=== PATIENT | female | born 1965 | race Caucasian/White ===

== ENCOUNTER 2022-06-16 16:38 | Emergency (ER) | payer BC, SELFPAY ==
[2022-06-16 16:47] VITALS: BP 138/54; PULSE 86; RESP 18; TEMP 36.6; O2SAT 97; BMI 33.3
--- NOTE | 2022-06-16 17:34 | CRLHL7_ITS ---
For Patients: As a result of the Century Cures Act, medical imaging exams and procedure reports are released immediately into your electronic medical record. You may view this report before your referring provider. If you have questions, please contact your health care provider. INDICATION: Fall TECHNIQUE: CT head without contrast. COMPARISON: None. FINDINGS: Motion predominately in the skullbase degrades evaluation these levels. No intracranial hemorrhage. No discrete mass or mass effect. There is no midline shift. The basilar cisterns are patent. No hydrocephalus. The madrigal-white matter interface is otherwise preserved. No acute osseous abnormality. No extracalvarial soft tissue abnormality. The mastoid air cells are clear. The paranasal sinuses are well-aerated. The visualized portions of the orbits and globes are unremarkable. IMPRESSION: No acute intracranial process per unenhanced head CT given the above constraints. Please note that all CT scans at this facility use dose modulation, iterative reconstruction, and/or weight-based dosing when appropriate to reduce radiation dose to as low as reasonably achievable. Dictated by Darren Rivero MD @ 06/16/2022 7:01:09 PM (Electronically Signed)
--- NOTE | 2022-06-16 17:34 | CRLHL7_ITS ---
For Patients: As a result of the Cures Act, medical imaging exams and procedure reports are released immediately into your electronic medical record. You may view this report before your referring provider. If you have questions, please contact your health care provider. INDICATION: Fall. TECHNIQUE: CT cervical spine without contrast. COMPARISON: None. FINDINGS: No acute fracture. Trace anterolisthesis of C4 on C5. Bony mineralization is age appropriate. No prevertebral soft tissue hematoma or swelling. No soft tissue abnormality is identified. Multilevel cervical spondylosis. No pathologically enlarged lymph nodes. Rim calcified thyroid nodules. Centrilobular emphysema in the lung apices. Calcified granulomas in the lung apices. IMPRESSION: Unremarkable cervical spine CT. Please note that all CT scans at this facility use dose modulation, iterative reconstruction, and/or weight-based dosing when appropriate to reduce radiation dose to as low as reasonably achievable. Dictated by Darren Rivero MD @ 06/16/2022 7:04:12 PM (Electronically Signed)
--- NOTE | 2022-06-16 18:47 | ED_ITS ---
HPI - General Adult General Date Seen: 06/16/22 Chief complaint: Head Injury/Pain Stated complaint: Fell in February, chronic headaches/memory loss Time Seen by Provider: 06/16/22 17:18 Source: patient Mode of arrival: ambulatory Limitations: no limitations History of Present Illness HPI narrative: Patient is a 57-year-old female who comes in with complaints of posterior headache that has been worsening over the past couple of weeks. She relates this all to a fall that occurred in February. She is uncertain if she got knocked out but she did hit the back of her head on a cement step. Unclear why she did not seek medical attention at that time. He denies any neurologic deficits such as slurred speech, blurry vision, clumsiness of an arm or leg. She has chronic lower back pain and goes to a pain clinic. She takes six oxycodone per day. She is concerned that she may be having some short-term memory loss but cannot give me any examples. She is mainly here tonight because she is afraid that her brain is disconnected. Apparently her father had some type of head injury that resulted in a hemorrhage and surgery to relieve the pressure. She is fearful that she has the same thing and we discussed that if that were to happen from her fall in February would have happened a long time ago. She has had no nausea, vomiting, neurologic symptoms. Related Data Home Medications Medication Instructions Recorded Confirmed albuterol 06/16/22 citalopram 20 mg tablet mg PO 06/16/22 ezetimibe 10 mg tablet 10 mg PO DAILY 06/16/22 06/16/22 methocarbamol 750 mg tablet 750 mg PO QID 06/16/22 06/16/22 methylprednisolone 4 mg tablets in mg DIRECTED 06/16/22 a dose pack nabumetone 750 mg tablet 750 mg PO BID 06/16/22 06/16/22 oxycodone-acetaminophen 7.5 mg-325 1 tab PO Q4-6H PRN chronic pain 06/16/22 06/16/22 mg tablet trazodone 50 mg tablet PO 06/16/22 Allergies Allergy/AdvReac Type Severity Reaction Status Date / Time amoxicillin Allergy Severe Verified 06/16/22 16:58 [id number]-[id number] Reductase Allergy Severe Verified 06/16/22 17:04 Inhibitor tramadol Allergy Severe Anaphylaxis Verified 06/16/22 17:04 atorvastatin [From Lipitor] Allergy Intermediate Verified 06/16/22 17:04 hydroxyzine Allergy Unknown Verified 06/16/22 17:04 acetaminophen [From Percocet] AdvReac Unknown Verified 06/16/22 17:04 oxycodone [From Percocet] AdvReac Unknown Verified 06/16/22 17:04 bee sting Allergy Severe Uncoded 06/16/22 17:04 Review of Systems Narrative: Review of systems is as outlined above otherwise noted to be negative. PFSH [facility] Social History Smoking Status: Current every day smoker What tobacco products do you use: cigarettes Exam Narrative: Exam Narrative: Vitals noted. She is intermittently tearful. HEENT: Conjunctiva clear. Tympanic membranes are pearly white bilaterally. Posterior pharynx is clear without erythema or exudate. Neck is supple without adenopathy, thyromegaly, carotid bruit. She has full range of motion of the cervical spine. She has some myofascial tightness and tenderness of the upper back as well as the lower back. She is neurologically intact. Lungs: Clear to auscultation in all mcknight. No wheezes, rales, rhonchi. Heart: Regular rate and rhythm without murmur. Abdomen: Soft and nontender. No guarding, rigidity, rebound. Bowel sounds are normal. No palpable masses. Extremities: No cyanosis or edema. Good distal pulses. Skin: No abnormalities noted of the exposed skin. Neurologic: Awake, alert, fully oriented. Neurologic exam is nonfocal. Const: Vital Signs, click to edit/add: Vital Signs - 24 hr 06/16/22 16:47 Temperature 97.9 F Pulse Rate [Pulse Oximeter] 86 Respiratory Rate 18 Blood Pressure [Ri ght Upper Arm] 138/54 L Pulse Oximetry 97 Oxygen Delivery Me thod Room Air Course Course Hospital Course: Patient was seen and examined. She is basically looking for some reassurance that nothing bad happened when she fell and hit her head three months ago. I did concede and order a CT of her head and cervical spine. Reevaluation(s) Reevaluation #1: CT of the brain and cervical spine is normal. Vital Signs Vital signs: Initial Vital Signs Temperature 97.9 F 06/16/22 16:47 Temperature Source Temporal Artery Scan 06/16/22 16:47 Pulse Rate 86 06/16/22 16:47 Respiratory Rate 18 06/16/22 16:47 Blood Pressure 138/54 L 06/16/22 16:47 Blood Pressure Mean 82 06/16/22 16:47 Blood Pressure Position Supine 06/16/22 16:47 Pulse Oximetry 97 06/16/22 16:47 Oxygen Delivery Method Room Air 06/16/22 16:47 Vital Signs Temperature 97.9 F 06/16/22 16:47 Pulse Rate 86 06/16/22 16:47 Respiratory Rate 18 06/16/22 16:47 Blood Pressure 138/54 L 06/16/22 16:47 Pulse Oximetry 97 06/16/22 16:47 Oxygen Delivery Method Room Air 06/16/22 16:47 Temperature 97.9 F 06/16/22 16:47 Pulse Rate 86 06/16/22 16:47 Respiratory Rate 18 06/16/22 16:47 Blood Pressure 138/54 L 06/16/22 16:47 Pulse Oximetry 97 06/16/22 16:47 Oxygen Delivery Method Room Air 06/16/22 16:47 Medical Decision Making MDM Narrative Medical decision making narrative: Her headaches are chronic in sound like muscle tension. She is reassured by her normal imaging. She already has an anti-inflammatory, muscle relaxer, chronic narcotic that she is using. She can follow-up with her PCP to discuss possibly some physical therapy. Discharge Plan Discharge Clinical Impression: Closed head injury Qualifiers: Encounter type: subsequent encounter Qualified Code(s): S09.90XD - Unspecified injury of head, subsequent encounter Chronic tension headaches Qualifiers: Intractability: not intractable Qualified Code(s): G44.229 - Chronic tension- type headache, not intractable Patient Disposition: Home, Self-Care Condition: Improved Additional Instructions: Use ice, stretching, methocarbamol and Relafen to help with her headaches. Follow-up with your PCP Wednesday as scheduled. Your scans are reassuring. Prescriptions: No Action albuterol citalopram 20 mg tablet PO ezetimibe 10 mg tablet 10 mg PO DAILY methocarbamol 750 mg tablet 750 mg PO QID nabumetone 750 mg tablet 750 mg PO BID trazodone 50 mg tablet PO oxycodone-acetaminophen 7.5-325 mg tablet 1 tab PO Q4-6H PRN (Reason: chronic pain) methylprednisolone 4 mg tablets,dose pack DIRECTED Follow Up/Referrals: Lori Bradley PA-C [Primary Care Provider] - Stand Alone Forms: [employer] Info Instructions
== END 2022-06-16 19:23 | disposition home or self-care (01) ==
PROVIDERS: Emergency Provider Family Medicine; PCP Physician Assistant Medical
DX: G44.229 Chronic tension-type headache, not intractable (principal); W19.XXXD Unspecified fall, subsequent encounter
CPT/HCPCS: 70450; 72125; 99282; 99283

== ENCOUNTER 2022-09-12 12:07 | Emergency (ER) | payer BC, SELFPAY ==
[2022-09-12 12:16] VITALS: BP 179/102; PULSE 82; RESP 20; TEMP 36.6; O2SAT 95; BMI 31.8
[2022-09-12 12:30] VITALS: BP 179/103; O2SAT 94
--- NOTE | 2022-09-12 13:03 | ED.GENADULT ---
HPI - General Adult General Chief complaint: Allergic Reaction Stated complaint: allergic reactions to meds Time Seen by Provider: 09/12/22 12:10 History of Present Illness HPI narrative: This 57-year-old female has chronic pain in her low back and has been taking opiates for many years. She has typically taken Percocet but states that she was prescribed oxycodone 10 mg recently and these tablets did not sit well with her. She states that she feels sharp pains at times in her throat and feels itchy. She does not have any rash or swelling. She arrives with normal vital signs. Her blood pressure is a bit elevated. Related Data Home Medications Medication Instructions Recorded Confirmed albuterol 06/16/22 citalopram 20 mg tablet mg PO 06/16/22 ezetimibe 10 mg tablet 10 mg PO DAILY 06/16/22 06/16/22 methocarbamol 750 mg tablet 750 mg PO QID 06/16/22 06/16/22 methylprednisolone 4 mg tablets in mg DIRECTED 06/16/22 a dose pack nabumetone 750 mg tablet 750 mg PO BID 06/16/22 06/16/22 oxycodone-acetaminophen 7.5 mg-325 1 tab PO Q4-6H PRN chronic pain 06/16/22 06/16/22 mg tablet trazodone 50 mg tablet PO 06/16/22 Previous Rx's Medication Instructions Recorded methylprednisolone 4 mg tablets in See Rx Instructions PO .COMPLEX 09/12/22 a dose pack (Medrol (Valentino)) #21 ea Allergies Allergy/AdvReac Type Severity Reaction Status Date / Time amoxicillin Allergy Severe Verified 06/16/22 16:58 Ftacrin-AYP-[id number] Reductase Allergy Severe Verified 06/16/22 17:04 Inhibitor tramadol Allergy Severe Anaphylaxis Verified 06/16/22 17:04 atorvastatin [From Lipitor] Allergy Intermediate Verified 06/16/22 17:04 hydroxyzine Allergy Unknown Verified 06/16/22 17:04 acetaminophen [From Percocet] AdvReac Unknown Verified 06/16/22 17:04 oxycodone [From Percocet] AdvReac Unknown Verified 06/16/22 17:04 bee sting Allergy Severe Uncoded 06/16/22 17:04 Review of Systems Status of ROS: Reports: 10 or more systems reviewed and unremarkable except as noted in History and below Narrative: Constitutional: No fevers, no weight gain or loss. Eyes: No discharge. No vision changes. HENT: No congestion, no sore throat, no ear pain. Cardiovascular: No chest pain, no palpitations. Respiratory: No shortness of breath, no wheezes, no cough. Gastrointestinal: No abdominal pain, no vomiting, no diarrhea. Genitourinary: No dysuria, no hematuria. Musculoskeletal: Normal range of motion. Chronic low back pain. Skin: No rashes. She has episodes of pruritus. Neurological: No dizziness, weakness, sensory change, speech change. Endo/Heme/Allergies: No bruising or bleeding. No polydipsia. Pysch: no suicidality, no anxiety, no insomnia. All other systems reviewed and are negative. [facility] Social History Smoking Status: Current every day smoker What tobacco products do you use: cigarettes Smoking packs per day: 1 Smoking cigarettes per day: 20.0 Years smoked: 45 Smoking pack-years: 45.00 Do you use any of these nicotine containing products: None Second hand tobacco smoke exposure: No How often do you have a drink containing alcohol: never How often do you have six or more drinks on one occasion: Never AUDIT-C Alcohol total score: 0 Non-prescribed substance use: denies use service: Yes Exam Narrative: Exam Narrative: Constitutional: Well-developed, well-nourished, no acute distress. HEENT: Normocephalic, atraumatic. Neck: Normal range of motion. Nontender. Supple. Heart: Regular. No murmurs. Normal rate. Intact distal pulses. Lungs: Clear to auscultation. No chest discomfort. No wheezes, rhonchi, or rales. Abdomen: Normal bowel sounds. Nontender. No rebound tenderness. Genitalia: Deferred. Back: No midline tenderness. Normal range of motion. Extremities: Normal range of motion. No injury. Skin: Intact. No rash. Warm. No erythema or pallor. Neurologic: No altered sensation. No weakness. Alert and oriented. Psychiatric: No suicidality. Nursing notes and vitals signs are reviewed. Const: Vital Signs, click to edit/add: Vital Signs - 24 hr 09/12/22 12:16 Temperature 97.8 F Pulse Rate [Pulse Oximeter] 82 Respiratory Rate 20 Blood Pressure [Ri ght Upper Arm] 179/102 H Pulse Oximetry 95 Oxygen Delivery Me thod Room Air Course Vital Signs Vital signs: Initial Vital Signs Temperature 97.8 F 09/12/22 12:16 Temperature Source Temporal Artery Scan 09/12/22 12:16 Pulse Rate 82 09/12/22 12:16 Pulse Rhythm Regular 09/12/22 12:16 Respiratory Rate 20 09/12/22 12:16 Blood Pressure 179/102 H 09/12/22 12:16 Blood Pressure Mean 127 H 09/12/22 12:16 Blood Pressure Position Sitting 09/12/22 12:16 Pulse Oximetry 95 09/12/22 12:16 Oxygen Delivery Method Room Air 09/12/22 12:16 Vital Signs Temperature 97.8 F 09/12/22 12:16 Pulse Rate 82 09/12/22 12:16 Respiratory Rate 20 09/12/22 12:16 Blood Pressure 179/102 H 09/12/22 12:16 Pulse Oximetry 95 09/12/22 12:16 Oxygen Delivery Method Room Air 09/12/22 12:16 Temperature 97.8 F 09/12/22 12:16 Pulse Rate 82 09/12/22 12:16 Respiratory Rate 20 09/12/22 12:16 Blood Pressure 179/102 H 09/12/22 12:16 Pulse Oximetry 95 09/12/22 12:16 Oxygen Delivery Method Room Air 09/12/22 12:16 Medical Decision Making MDM Narrative Medical decision making narrative: This patient reports some symptoms of pruritus and episodes of pain in her throat. She is concerned that she is having an allergic reaction to medication. She is not exhibiting any sign of allergy symptoms but may be having some adverse reactions to medicines. Her exam is completely normal and her vital signs are reassuring. The patient stated relief and benefit from having discussion about what allergy is and about adverse reactions that can occur. She states that she did have a steroid a couple months ago and this helped her symptoms. She did take Zyrtec and Benadryl prior to arrival without much relief. I did provide a oral dose of dexamethasone 10 mg. I also prescribed a Medrol Dosepak. She is carefully following the guidelines of medications as prescribed by her pain clinic personnel. I did recommend using and histamine and stated that it seems that Mendy perform is a bit better than the others. Discharge Plan Discharge Clinical Impression: Adverse reaction to drug Patient Disposition: Home w/ Parent or Adult Condition: Stable Additional Instructions: Take medication as prescribed. Use Mendy up to 3 times daily for acute onset of itching or allergy symptoms. Continue current plans as outlined by the pain clinic. Follow up with MD or return if worsening. Prescriptions: New methylprednisolone [Medrol (Valentino)] 4 mg tablets,dose pack See Rx Instructions .ROUTE .COMPLEX Qty: 21 0RF Rx Instructions: orally per package directions No Action albuterol citalopram 20 mg tablet PO ezetimibe 10 mg tablet 10 mg PO DAILY methocarbamol 750 mg tablet 750 mg PO QID nabumetone 750 mg tablet 750 mg PO BID trazodone 50 mg tablet PO oxycodone-acetaminophen 7.5-325 mg tablet 1 tab PO Q4-6H PRN (Reason: chronic pain) methylprednisolone 4 mg tablets,dose pack DIRECTED Follow Up/Referrals: Lori Bradley PAChiquita [Primary Care Provider] - Stand Alone Forms: [employer] Info Instructions
[2022-09-12] MEDS: dexAMETHasone 10 MG/ML inj PO (13:17)
== END 2022-09-12 13:52 | disposition home or self-care (01) ==
LOC: ED 13:25
PROVIDERS: Emergency Provider Emergency Medicine Emergency Medical Services; PCP Physician Assistant Medical
DX: T40.2X5A Adverse effect of other opioids, initial encounter (principal); L29.9 Pruritus, unspecified
CPT/HCPCS: 99283; 99284; J1100

== ENCOUNTER 2023-11-18 17:06 | Emergency (ER) | payer BC, SELFPAY ==
[2023-11-18 17:16] VITALS: BP 153/82; PULSE 84; RESP 22; TEMP 36.5; O2SAT 93; BMI 31.5
--- NOTE | 2023-11-18 18:01 | ED_ITS ---
HPI - General Adult General Date Seen: 11/18/23 Chief complaint: Cough Stated complaint: cough Time Seen by Provider: 11/18/23 17:35 History of Present Illness HPI narrative: 58 yo F with a past medical history of presenting to the ER today with concern for nasal congestion, frequent cough. Cough productive of yellow/greenish sputum. No definite fevers but she is having body aches like ?pins and needles? throughout her chset. Symptoms started about 10 days ago on November 07. She has had symptoms of cough, some nasal congestion. She has been producing a lot of yellow/green purulent sputum and also yellow green nasal discharge. She has not had any fevers. Sometimes she gets very short of breath, especially during coughing spells and when that happens she gets a pins and needles feeling in her chest. She has been trying to treat with [id number] medications like DayQuil and NyQuil. She has an inhaler, but has not used it had. She does not have a diagnosis of COPD or asthma does not regularly use inhalers. She has a history of pneumonia (had systems for several months last winter and ultimately was diagnosed with a large left lower lobe infiltrate last April at the [facility]. She had been on a course of penicillins or amoxicillin for possible sinus infection but her pneumonia not get better until her doctor put her on Levaquin. She feels similar with her current illness than when she had previously. She is not having any chest pain. No vomiting or dehydration. No swelling in her legs. Related Data Home Medications ?Medication ?Instructions ?Recorded ?Confirmed albuterol 06/16/22 citalopram 20 mg tablet 30 mg PO QDAY 06/16/22 11/18/23 ezetimibe 10 mg tablet 10 mg PO DAILY 06/16/22 06/16/22 methocarbamol 750 mg tablet 750 mg PO QID 06/16/22 11/18/23 methylprednisolone 4 mg tablets in mg DIRECTED 06/16/22 a dose pack nabumetone 750 mg tablet 750 mg PO BID 06/16/22 11/18/23 oxycodone-acetaminophen 7.5 mg-325 1 tab PO Q4-6H PRN chronic pain 06/16/22 11/18/23 mg tablet trazodone 50 mg tablet PO 06/16/22 Previous Rx's ?Medication ?Instructions ?Recorded methylprednisolone 4 mg tablets in See Rx Instructions PO .COMPLEX 09/12/22 a dose pack (Medrol (Valentino)) #21 ea albuterol sulfate 90 mcg/actuation 2 puff inhalation Q4H PRN 11/18/23 aerosol inhaler shortness of breath or wheezing #8.5 grams doxycycline hyclate 100 mg capsule 100 mg PO BID #14 caps 11/18/23 prednisone 20 mg tablet 40 mg (2 x 20 mg) PO DAILY #10 tabs 11/18/23 Allergies Allergy/AdvReac Type Severity Reaction Status Date / Time amoxicillin Allergy Severe Verified 06/16/22 16:58 Ojvtcqn-RAD-AnC Reductase Allergy Severe Verified 06/16/22 17:04 Inhibitor tramadol Allergy Severe Anaphylaxis Verified 06/16/22 17:04 atorvastatin [From Lipitor] Allergy Intermediate Verified 06/16/22 17:04 hydroxyzine Allergy Unknown Verified 06/16/22 17:04 acetaminophen [From Percocet] AdvReac Unknown Verified 06/16/22 17:04 oxycodone [From Percocet] AdvReac Unknown Verified 06/16/22 17:04 bee sting Allergy Severe Uncoded 06/16/22 17:04 [facility] Social History Smoking Status: Current every day smoker What tobacco products do you use: cigarettes Smoking packs per day: 1 Smoking cigarettes per day: 20.0 Years smoked: 45 Smoking pack-years: 45.00 Do you use any of these nicotine containing products: None Second hand tobacco smoke exposure: No How often do you have a drink containing alcohol: never How often do you have six or more drinks on one occasion: Never AUDIT-C Alcohol total score: 0 Non-prescribed substance use: denies use service: Yes Exam Narrative: Exam Narrative: Constitutional: Appears well-developed and well-nourished. Alert. Conversant. Non toxic. Frequent cough. HENT: Head: Atraumatic. Nose: Nose normal. Mouth/Throat: Oral mucosa is clear and moist. no trismus. Pharynx normal. Tonsils symmetric. No tonsillar enlargement, erythema, or exudate. TMs normal. Eyes: Conjunctivae normal. EOM normal. Pupils equal, round, and reactive to light. No scleral icterus. Neck: Normal range of motion. Neck supple. No tracheal deviation present. Cardiovascular: Normal rate, regular rhythm. No gallop. No friction rub. No murmur heard. Symmetric radial artery pulses Pulmonary/Chest: Effort normal. No stridor. No respiratory distress. Fairly diffuse wheezes. No rales. No rhonchi . No tenderness. Abdominal: Soft. Bowel sounds normal. No distension. No mass. No tenderness. No rebound. No guarding. Musculoskeletal: RUE: Normal range of motion. No tenderness. No deformity LUE: Normal range of motion. No tenderness. No deformity RLE: Normal range of motion. No edema. No tenderness. No deformity LLE: Normal range of motion. No edema. No tenderness. No deformity Neurological: Alert and oriented to person, place, and time. Normal strength. CN II-VII intact. No sensory deficit. GCS eye subscore is 4. GCS verbal subscore is 5. GCS motor subscore is 6. Normal coordination Skin: Skin is warm and dry. No rash noted. No pallor. Normal capillary refill. Psychiatric: Normal mood. Normal affect. Const: Vital Signs, click to edit/add: Vital Signs - 24 hr 11/18/23 17:16 11/18/23 19:10 Temperature 97.7 F Pulse Rate [Right Radial] 84 Respiratory Rate 22 20 Blood Pressure [Ri ght Upper Arm] 153/82 H 140/77 H Pulse Oximetry 93 94 Oxygen Delivery Me thod Room Air Room Air Course Vital Signs Vital signs: Initial Vital Signs Temperature 97.7 F 11/18/23 17:16 Temperature Source Temporal Artery Scan 11/18/23 17:16 Pulse Rate 84 11/18/23 17:16 Pulse Rhythm Regular 11/18/23 17:16 Respiratory Rate 22 11/18/23 17:16 Blood Pressure 153/82 H 11/18/23 17:16 Blood Pressure Mean 105 11/18/23 17:16 Pulse Oximetry 93 11/18/23 17:16 Oxygen Delivery Method Room Air 11/18/23 17:16 Vital Signs Temperature 97.7 F 11/18/23 17:16 Pulse Rate 84 11/18/23 17:16 Respiratory Rate 22 11/18/23 17:16 Blood Pressure 153/82 H 11/18/23 17:16 Pulse Oximetry 93 11/18/23 17:16 Oxygen Delivery Method Room Air 11/18/23 17:16 Temperature 97.7 F 11/18/23 17:16 Pulse Rate 84 11/18/23 17:16 Respiratory Rate 20 11/18/23 19:10 Blood Pressure 140/77 H 11/18/23 19:10 Pulse Oximetry 94 11/18/23 19:10 Oxygen Delivery Method Room Air 11/18/23 19:10 Medications Administered Medications: Discontinued Medications Generic Name Dose Route Start Last Admin Trade Name Lesa PRN Reason Stop Dose Admin Albuterol/Ipratropium 1 neb 11/18/23 18:21 11/18/23 18:44 Iprat-Albut 0.5-2.5 Mg/3 Ml Neb IH 11/18/23 18:22 1 neb ONCE ONE Administration Prednisone 40 mg 11/18/23 18:21 11/18/23 18:44 Prednisone 20 Mg Tablet PO 11/18/23 18:22 40 mg ONCE ONE Administration Medical Decision Making [facility] Narrative Medical decision making narrative: This patient presents for evaluation of a 10 day history of productive cough, nasal congestion with facial pain and headache. She has a history of pneumonia presenting similarly last year as well as long history of smoking without a formal diagnosis of asthma or COPD. She is not having any chest pain to suggest acute coronary syndrome. A broad differential was considered including asthma, pneumonia, bronchitis, pneumothorax, viral induced wheezing, allergic phenomena, among others. Chest x-ray is negative for any acute focal infiltrates. COVID and influenza PCR is negative. She did have significant wheezing and bronchospasm on her initial exam. Treated with DuoNeb and oral steroids. The patient feels and sounds improved after interventions here in ED. No indication for hospitalization at this time including no hypoxia, no marked increase in respiratory rate, and there are minimal to no retractions. Supportive outpatient management is indicated, medications for discharge noted above. Close followup with primary care physician. Return if increased wheezing, progressive shortness of breath, develops fever greater than 102. Questions answered and patient comfortable with plan. Lab Data Labs: Lab Results 11/18/23 Range/Units 18:47 SARS-CoV-2 (PCR) Negative SARS-CoV-2 (Negative) Influenza Type A (PCR) Negative PCR FLU A (Negative) Influenza Type B (PCR) Negative PCR FLU B (Negative) RSV (PCR) Negative PCR RSV (Negative) Imaging Data Chest x-ray: Attestation: I have reviewed the pertinent imaging results. My impression: No infiltrates. No pleural effusions. No pneumothorax-Dr. Danielson. Radiologist's impression: IMPRESSION: No evidence of an acute pulmonary process. Discharge Plan Discharge Clinical Impression: Cough, Asthma exacerbation in COPD Patient Disposition: Home, Self-Care Condition: Stable Instructions: COPD (Chronic Obstructive Pulmonary Disease) (DC) Additional Instructions: As we discussed, your COVID swab is negative and her chest x-ray looks good today. We do not see any sign of pneumonia. However based on how long it had a cough or going to put you on an antibiotic (doxycycline). More importantly we want to treat your wheezing. Use your inhaler every 2-4 hours if needed. Usual prednisone once daily for 5 days. Please follow-up with your regular doctor for recheck within the next 2-3 days. Come back to the ER right away if you have any worsening trouble breathing, high fever, worsening cough, or any other problems. Prescriptions: New doxycycline hyclate 100 mg capsule 100 mg PO BID Qty: 14 0RF prednisone 20 mg tablet 40 mg PO DAILY Qty: 10 0RF albuterol sulfate 90 mcg/actuation HFA aerosol inhaler 2 puff inhalation Q4H PRN (Reason: shortness of breath or wheezing) Qty: 8.5 0RF No Action methylprednisolone [Medrol (Valentino)] 4 mg tablets,dose pack See Rx Instructions .ROUTE .COMPLEX Qty: 21 0RF Rx Instructions: orally per package directions albuterol citalopram 20 mg tablet 30 mg PO QDAY ezetimibe 10 mg tablet 10 mg PO DAILY methocarbamol 750 mg tablet 750 mg PO QID nabumetone 750 mg tablet 750 mg PO BID trazodone 50 mg tablet PO oxycodone-acetaminophen 7.5-325 mg tablet 1 tab PO Q4-6H PRN (Reason: chronic pain) Hold Instructions: not taking anymore methylprednisolone 4 mg tablets,dose pack DIRECTED Follow Up/Referrals: Lori Bradley PA-C [Primary Care Provider] - Stand Alone Forms: [employer] Info Instructions
--- NOTE | 2023-11-18 18:21 | CRLHL7_ITS ---
For Patients: As a result of the Century Cures Act, medical imaging exams and procedure reports are released immediately into your electronic medical record. You may view this report before your referring provider. If you have questions, please contact your health care provider. INDICATION: Cough, shortness of breath, wheezing. TECHNIQUE: Chest 2 views. COMPARISON: None. FINDINGS: Cardiovascular and mediastinum: Heart size and vasculature are normal in caliber and appearance. Lungs and pleural spaces: No focal consolidation, pleural effusion, or pneumothorax. Bones and soft tissues: Unremarkable for age. IMPRESSION: No evidence of an acute pulmonary process. Dictated by Blayne Hassan MD @ 11/18/2023 7:53:44 PM (Electronically Signed)
[2023-11-18] MEDS: predniSONE 20 MG TABLET 40 MG PO (18:44)
[2023-11-18] MEDS: IPRAT-ALBUT 0.5-2.5 MG/3 ML NEB 1 NEB IH (18:44)
[2023-11-18 19:10] VITALS: BP 140/77; RESP 20; O2SAT 94
[2023-11-18 20:15] LABS: PCR FLU A Negative PCR FLU A (Negative); PCR FLU B Negative PCR FLU B (Negative); PCR RSV Negative PCR RSV (Negative); SARS PCR* Negative SARS-CoV-2 (Negative)
== END 2023-11-18 20:45 | disposition home or self-care (01) ==
PROVIDERS: Emergency Provider Emergency Medicine; PCP Physician Assistant Medical
DX: J44.1 Chronic obstructive pulmonary disease with (acute) exacerbation (principal); R05.9 Cough, unspecified
CPT/HCPCS: 71046; 87631; 94640; 99282; 99284; J7512